=== PATIENT | female | born 1950 | race Caucasian/White ===

== ENCOUNTER → 2017-08-31 | Outpatient (CLI) | payer MEDICARE, BC | END | disposition home or self-care (01) | LOC: HKI 10:34 | DX: M25.551 Pain in right hip (principal); I10 Essential (primary) hypertension; G35 Multiple sclerosis; Z88.0 Allergy status to penicillin | CPT/HCPCS: 73502 ==

== ENCOUNTER 2017-10-29 05:59 | Day surgery (SDC) | payer MEDICARE, BC ==
[2017-10-29] MEDS: LIDOCAINE 1%/EPI 30 ML INJ (07:03)
[2017-10-29] MEDS ORDERED: CEFAZOLIN 1 GM INJ (08:00)
[2017-10-29] MEDS ORDERED: PROPOFOL 20 ML (08:00)
[2017-10-29] MEDS: LIDOCAINE 1% (MPF) 30 ML INJ (08:09)
[2017-10-29] MEDS: SODIUM CL BACTERIOSTATIC 30 ML INJ (08:09)
[2017-10-29] MEDS: BUPIVACAINE 0.25% (MPF) 30 ML INJ (08:09)
[2017-10-29] MEDS: METHYLPREDNISOLONE ACET 80 MG/ML 1 ML (08:09)
[2017-10-29] MEDS: IOHEXOL 300MG/ML 30 ML BTL (08:09)
[2017-10-29] MEDS ORDERED: ONDANSETRON 4 MG INJ (08:11)
[2017-10-29] MEDS ORDERED: METOCLOPRAMIDE 10 MG INJ (08:11)
[2017-10-29] MEDS ORDERED: DEXAMETHASONE 4 MG/ML 1 ML INJ (08:14)
== END 2017-10-29 09:30 | disposition home or self-care (01) ==
LOC: SDS 05:59
DX: M16.11 Unilateral primary osteoarthritis, right hip (principal); I10 Essential (primary) hypertension; E78.5 Hyperlipidemia, unspecified; E11.9 Type 2 diabetes mellitus without complications; K21.9 Gastro-esophageal reflux disease without esophagitis
CPT/HCPCS: 20610; 73502; 73530; 82962

== ENCOUNTER → 2017-12-07 | Outpatient (CLI) | payer MEDICARE, BC | END | disposition home or self-care (01) | LOC: HKI 09:58 | DX: M16.11 Unilateral primary osteoarthritis, right hip (principal) | CPT/HCPCS: G0463 ==